=== PATIENT | male | born 1975 | race Caucasian/White ===

== ENCOUNTER 2017-05-08 16:14 | Emergency (ER) | payer BC, SELFPAY ==
[2017-05-08 16:14] VITALS: BP 171/95; PULSE 102; RESP 18; TEMP 36.6; O2SAT 96; BMI 63.0
--- NOTE | 2017-05-08 16:19 | CT_ITS ---
CT abdomen pelvis w con CLINICAL INDICATION: ITS.REASON: left sided abdominal pain ORDERING PHYSICIAN: Saige House MD PATIENT AGE: 42 years COMPARISON: None TECHNIQUE: Axial images obtained with sagittal and coronal reformats. PROCEDURE: Oral Contrast: None IV Contrast: 75 mL of [id number]. FINDINGS: Lung bases are clear. The liver, gallbladder, spleen, adrenal glands, pancreas, and kidneys have an unremarkable appearance Unremarkable appendix. No intestinal obstruction or free air. There are scattered diverticula within the descending colon. No evidence of diverticulitis. There is mild thickening of the descending colon and sigmoid colon which may be due to colitis. There is an unusual appearance of the sigmoid colon in the right pelvic region with a somewhat focally prominent gas density with mild thickening of the wall. The may only be related to tortuosity of the sigmoid colon. An abscess is felt to be less likely. No inflammatory changes around this region. There is some focal thickening of the mid aspect of the sigmoid colon with mild dilatation. One cannot exclude the possibility of a neoplasm. Colonoscopy or barium enema suggested for further value There is mild thickening in the urinary bladder nonspecific and could be seen with cystitis. No acute bony anomalies. IMPRESSION: 1. Mild thickening of the descending and sigmoid colon which could be due to nondistention or colitis. 2. There is some focal thickening of the mid aspect of the sigmoid colon with mild dilatation. One cannot exclude the possibility of a neoplasm. Colonoscopy or barium enema suggested for further value. 3. Mild thickening of the urinary bladder which may be seen with cystitis
--- NOTE | 2017-05-08 16:20 | HMH.EDGENADL ---
ED Disposition Clinical Impression: Colitis, Elevated lipase Disposition: Home, Self-Care Condition on Discharge: Good Additional Instructions: 1- drink pleny of gotrade. 2- vegetable diet. 3- bentyl prn. 4- discuc ct report withDr <osses your pcp. 5- request colonscopy of still concened about colon cancer. 6- return if needed. - Critical Care Critical Care Time: No Attestation: On , the high probability of a clinically significant, sudden or life threatening deterioration of the following system(s) required my full and direct attention, intervention and personal management. The time I documented below is in addition to time spent performing reported procedures but includes the following listed in this critical care notation. Medical Decision Making - Erik Inquiry Pt receiving controlled substance: No Erik was queried for this patient: No Vital Signs: 05/08/17 16:14 Temperature 97.8 F Temperature Source Oral Pulse Rate [Right Brachial] 102 H Respiratory Rate 18 Blood Pressure [Right Arm] 171/95 Blood Pressure Mean [Right Arm] 120 Blood Pressure Source [Right Arm] Automatic Cuff Blood Pressure Position [Right Arm] Sitting 02 Sat by Pulse Oximetry 96 Oxygen Delivery Method Room Air - Lab Data Lab Results 05/08/17 16:20: WBC 8.8, RBC 5.55, Hgb 16.6, Hct 49.0, MCV 88.2, MCH 29.9, MCHC 33.9, RDW 12.4, Plt Count 255, MPV 8.4, Neut % (Auto) 74.8, Lymph % (Auto) 19.4, [place] % (Auto) 4.8, Eos % (Auto) 0.6, Baso % (Auto) 0.3, Neut # (Auto) 6.6, Lymph # (Auto) 1.7, [place] # (Auto) 0.4, Eos # (Auto) 0.1, Baso # (Auto) 0.0 05/08/17 16:20: Sodium 138, Potassium 3.8, Chloride 100, Carbon Dioxide 27, Anion Gap 14.8, BUN 8, Creatinine 0.91, Estimated Creat Clear 132, Estimated GFR 92, Est GFR ( Amer) 112, Glucose 127 H, Calcium 9.3, Magnesium 2.1, Total Bilirubin 0.8, AST 24, ALT 68, Alkaline Phosphatase 108, Troponin I < 0.02, Total Protein 8.6 H, Albumin 4.5, Globulin 4.1 H, Albumin/Globulin Ratio 1.1, Lipase 422 H Result diagrams: 05/08/17 16:20 05/08/17 16:20 Orders (Tests/Meds): ED MEDICATIONS Discontinued Medications Generic Name Dose Route Start Last Admin Trade Name Bandar PRN Reason Stop Dose Admin Iopamidol 75 ml 05/08/17 17:19 05/08/17 17:20 [id number]; 75ml Vial IV 05/08/17 17:20 75 ml ONCE ONE Administration Sodium Chloride 10 ml 05/08/17 17:19 05/08/17 17:20 Rad-Saline Flush 10ml Syringe IV 05/08/17 17:20 10 ml ONCE ONE Administration ORDERS Category Date Time Status Diarrhea Panel, PCR Stat Lab 05/08/17 16:18 Ordered EKG Request [ECG Request by /Darlene] Stat Y 05/08/17 16:18 Ordered - ECG Data Tracing #1 Normal sinus rhythm minute left atrial enlargement baseline artifact no acute finding on EKG ECG initial impression date: 05/08/17 ECG initial impression time: 16:24 General Adult HPI - General Chief complaint: PAIN Stated complaint: left shouldre and rib pain Time Seen by Provider: 05/08/17 16:20 - History of Present Illness HPI narrative: This is a 42 years old white male who presented to the ED with multiple complain. A week ago, he hurt his left shoulder below the left shoulder blade, he developed sharp pain that is radiating to the left lower ribs to the anterior inframammary area and into the left side of the abdomen. He has been experiencing decreased appetite associated with sharp crampy pain on the left side and produced light-colored stool. He states he has a family history of colon cancer, the youngest being 55 years old. Patient denies having fever or chills anterior chest pain palpitations shortness of breath or vomiting Onset (ago): day(s) (7 days) Location: back, abdomen Radiation: non-radiation Severity: mild Quality: sharp Consistency: intermittent Relieving factors: eating Exacerbating factors: none Associated symptoms: other (diarrhea . ) Treatments prior to arrival: none - Related
--- NOTE | 2017-05-08 16:23 | ED_ITS ---
ED Disposition Clinical Impression: Colitis, Elevated lipase Disposition: Home, Self-Care Condition on Discharge: Good Additional Instructions: 1- drink pleny of gotrade. 2- vegetable diet. 3- bentyl prn. 4- discuc ct report withDr <osses your pcp. 5- request colonscopy of still concened about colon cancer. 6- return if needed. - Critical Care Critical Care Time: No Attestation: On , the high probability of a clinically significant, sudden or life threatening deterioration of the following system(s) required my full and direct attention, intervention and personal management. The time I documented below is in addition to time spent performing reported procedures but includes the following listed in this critical care notation. Medical Decision Making - Erik Inquiry Pt receiving controlled substance: No Erik was queried for this patient: No Vital Signs: 05/08/17 16:14 Temperature 97.8 F Temperature Source Oral Pulse Rate [Right Brachial] 102 H Respiratory Rate 18 Blood Pressure [Right Arm] 171/95 Blood Pressure Mean [Right Arm] 120 Blood Pressure Source [Right Arm] Automatic Cuff Blood Pressure Position [Right Arm] Sitting 02 Sat by Pulse Oximetry 96 Oxygen Delivery Method Room Air - Lab Data Lab Results 05/08/17 16:20: WBC 8.8, RBC 5.55, Hgb 16.6, Hct 49.0, MCV 88.2, MCH 29.9, MCHC 33.9, RDW 12.4, Plt Count 255, MPV 8.4, Neut % (Auto) 74.8, Lymph % (Auto) 19.4 , [place] % (Auto) 4.8, Eos % (Auto) 0.6, Baso % (Auto) 0.3, Neut # (Auto) 6.6, Lymph # (Auto) 1.7, [place] # (Auto) 0.4, Eos # (Auto) 0.1, Baso # (Auto) 0.0 05/08/17 16:20: Sodium 138, Potassium 3.8, Chloride 100, Carbon Dioxide 27, Anion Gap 14.8, BUN 8, Creatinine 0.91, Estimated Creat Clear 132, Estimated GFR 92, Est GFR ( Amer) 112, Glucose 127 H, Calcium 9.3, Magnesium 2.1, Total Bilirubin 0.8, AST 24, ALT 68, Alkaline Phosphatase 108, Troponin I < 0.02 , Total Protein 8.6 H, Albumin 4.5, Globulin 4.1 H, Albumin/Globulin Ratio 1.1, Lipase 422 H Result diagrams: 05/08/17 16:20 05/08/17 16:20 Orders (Tests/Meds): ED MEDICATIONS Discontinued Medications Generic Name Dose Route Start Last Admin Trade Name Bandar PRN Reason Stop Dose Admin Iopamidol 75 ml 05/08/17 17:19 05/08/17 17:20 [id number]; 75ml Vial IV 05/08/17 17:20 75 ml ONCE ONE Administration Sodium Chloride 10 ml 05/08/17 17:19 05/08/17 17:20 Rad-Saline Flush 10ml Syringe IV 05/08/17 17:20 10 ml ONCE ONE Administration ORDERS Category Date Time Status Diarrhea Panel, PCR Stat Lab 05/08/17 16:18 Ordered EKG Request [ECG Request by /Darlene] Stat Y 05/08/17 16:18 Ordered - ECG Data Tracing #1 Normal sinus rhythm minute left atrial enlargement baseline artifact no acute finding on EKG ECG initial impression date: 05/08/17 ECG initial impression time: 16:24 General Adult HPI - General Chief complaint: PAIN Stated complaint: left shouldre and rib pain Time Seen by Provider: 05/08/17 16:20 - History of Present Illness HPI narrative: This is a 42 years old white male who presented to the ED with multiple complain. A week ago, he hurt his left shoulder below the left shoulder blade, he developed sharp pain that is radiating to the left lower ribs to the
[2017-05-08 16:31] LABS: Basophils % 0.3 % (0.1-2.0); Eosinophils # 0.1 K/mm3 (0.0-0.4); Eosinophils % 0.6 % (0.1-12.0); Hemoglobin 16.6 g/dL (14.1-18.0); Lymphocytes # 1.7 K/mm3 (0.7-4.5); Lymphocytes % 19.4 K/mm3 (10-50); Mean Corpuscular HGB Conc 33.9 g/dL (31.8-35.4); Mean Corpuscular Hemoglobin 29.9 pg (27.0-31.2); Mean Corpuscular Volume 88.2 fl (80-94); Mean Platelet Volume 8.4 fl (7.4-10.4); Monocytes # 0.4 K/mm3 (0.1-1.0); Monocytes % 4.8 % (1.7-9.3); Neutrophils # 6.6 K/mm3 (1.8-7.8); Neutrophils % 74.8 % (37.0-80.0); Platelet Count 255 K/mm3 (142-424); Red Blood Count 5.55 M/mm3 (4.60-6.20); Red Cell Distribution Width 12.4 % (11.5-17.5); White Blood Count 8.8 K/mm3 (4.8-10.8)
[2017-05-08 16:49] LABS: Alanine Aminotransferase 68 U/L (12-78); Albumin Level 4.5 gm/dL (3.4-5.0); Albumin/Globulin Ratio 1.1 (1.1-1.8); Alkaline Phosphatase 108 U/L (46-116); Anion Gap 14.8 mEq/L (5-15); Aspartate Amino Transferase 24 U/L (15-37); Bilirubin,Total 0.8 mg/dL (0.2-1.0); Blood Urea Nitrogen 8 mg/dL (7-18); Calcium 9.3 mg/dL (8.5-10.1); Carbon Dioxide 27 mmol/L (21.0-32.0); Chloride 100 mmol/L (98-107); Creatinine Clearance Estimated 132 mL/min (0-300); Creatinine,Serum 0.91 mg/dL (0.70-1.30); Estimated Glomerular Filt Rate 92 ml/min (>60); GFR (African American) 112 ML/MIN (>60); Globulin 4.1 gm/dl (1.3-3.2); Glucose 127 mg/dL (74-106); Lipase 422 u/L (73-393); Magnesium 2.1 mg/dL (1.4-2.2); Potassium 3.8 mmoL/L (3.5-5.1); Sodium 138 mmol/L (136-145); Total Protein,Serum 8.6 gm/dL (6.4-8.2); Troponin I < 0.02 ng/ml (0.00-0.06)
[2017-05-08 18:13] VITALS: BP 121/5; PULSE 85; RESP 18; TEMP 36.7; O2SAT 98
== END 2017-05-08 18:13 | disposition home or self-care (01) ==
PROVIDERS: Emergency Provider Emergency Medicine; Family Provider Family Medicine; PCP Family Medicine
DX: K52.9 Noninfective gastroenteritis and colitis, unspecified (principal); R74.8 Abnormal levels of other serum enzymes; K57.90 Diverticulosis of intestine, part unspecified, without perforation or abscess without bleeding
CPT/HCPCS: 74177; 80053; 83690; 83735; 84484; 85025; 93005; 99282; Q9967

== ENCOUNTER → 2017-05-09 15:18 | Outpatient (CLI) | payer BC, SELFPAY ==
[2017-05-09 18:48] LABS: Basophils % 0.4 % (0.1-2.0); Eosinophils # 0.1 K/mm3 (0.0-0.4); Eosinophils % 0.5 % (0.1-12.0); Hematocrit 49.9 % (42.0-52.0); Hemoglobin 16.4 g/dL (14.1-18.0); Lymphocytes # 1.8 K/mm3 (0.7-4.5); Lymphocytes % 18.8 K/mm3 (10-50); Mean Corpuscular HGB Conc 32.9 g/dL (31.8-35.4); Mean Corpuscular Hemoglobin 29.3 pg (27.0-31.2); Mean Corpuscular Volume 89.2 fl (80-94); Mean Platelet Volume 9.8 fl (7.4-10.4); Monocytes # 0.5 K/mm3 (0.1-1.0); Monocytes % 5.2 % (1.7-9.3); Neutrophils # 7.1 K/mm3 (1.8-7.8); Neutrophils % 75.2 % (37.0-80.0); Platelet Count 264 K/mm3 (142-424); Red Cell Distribution Width 12.5 % (11.5-17.5); White Blood Count 9.5 K/mm3 (4.8-10.8)
[2017-05-09 18:53] LABS: Alanine Aminotransferase 66 U/L (12-78); Albumin Level 4.8 gm/dL (3.4-5.0); Albumin/Globulin Ratio 1.3 (1.1-1.8); Alkaline Phosphatase 112 U/L (46-116); Amylase 43 U/L (25-125); Anion Gap 15.1 mEq/L (5-15); Aspartate Amino Transferase 27 U/L (15-37); Bilirubin,Total 0.6 mg/dL (0.2-1.0); Blood Urea Nitrogen 9 mg/dL (7-18); Calcium 9.7 mg/dL (8.5-10.1); Carbon Dioxide 26 mmol/L (21.0-32.0); Chloride 101 mmol/L (98-107); Creatinine,Serum 0.86 mg/dL (0.70-1.30); Estimated Glomerular Filt Rate 98 ml/min (>60); GFR (African American) 119 ML/MIN (>60); Globulin 3.8 gm/dl (1.3-3.2); Glucose 109 mg/dL (74-106); Lipase 313 u/L (73-393); Potassium 4.1 mmoL/L (3.5-5.1); Sodium 138 mmol/L (136-145); Total Protein,Serum 8.6 gm/dL (6.4-8.2)
[2017-05-09 19:55] LABS: Erythrocyte Sedimentation Rate 11 mm/hr (0-15)
== END ==
PROVIDERS: Visit Provider Nurse Practitioner Family
DX: K52.9 Noninfective gastroenteritis and colitis, unspecified (principal); R74.8 Abnormal levels of other serum enzymes
CPT/HCPCS: 80053; 82150; 83690; 85025; 85651

== ENCOUNTER 2017-05-11 10:04 | Observation (INO) | payer BC, SELFPAY ==
[2017-05-11] VITALS (7 sets, daily range): BP systolic 149–176; BP diastolic 88–107; PULSE 73–95; RESP 16–18; TEMP 36.3–36.8; O2SAT 95–98; BMI 28.5; BMI 28.0
--- NOTE | 2017-05-11 10:25 | HMH.EDABDPAI ---
ED Disposition Clinical Impression: Colitis, Diverticulosis Disposition: Still a Patient Condition on Discharge: Fair - Critical Care Critical Care Time: No Attestation: On 05/11/17, the high probability of a clinically significant, sudden or life threatening deterioration of the following system(s) required my full and direct attention, intervention and personal management. The time I documented below is in addition to time spent performing reported procedures but includes the following listed in this critical care notation. Medical Decision Making - Medical Records Medical records reviewed: Yes: I reviewed the patient's medical records. - Erik Inquiry Pt receiving controlled substance: No Erik was queried for this patient: No Vital Signs: 05/11/17 10:14 Temperature Source Oral Pulse Rate [Right Radial] 95 H Respiratory Rate 18 Blood Pressure [Right Arm] 176/107 Blood Pressure Mean [Right Arm] 130 Blood Pressure Source [Right Arm] Automatic Cuff Blood Pressure Position [Right Arm] Supine 02 Sat by Pulse Oximetry 95 Oxygen Delivery Method Room Air - Lab Data Lab Results 05/11/17 10:33: Urine Color Yellow, Urine Appearance Clear, Urine pH 6.0, Ur Specific [place] <= 1.005, Urine Protein Negative, Urine Glucose (UA) Negative, Urine Ketones Negative, Urine Blood Negative, Urine Nitrate Negative, Urine Bilirubin Negative, Urine Urobilinogen 0.2, Ur Leukocyte Esterase Negative, Ur Squamous Epith Cells Occasional 05/11/17 10:50: WBC 10.8, RBC 5.20, Hgb 15.5, Hct 45.8, MCV 88.0, MCH 29.8, MCHC 33.8, RDW 12.5, Plt Count 242, MPV 8.8, Neut % (Auto) 82.7 H, Lymph % (Auto) 11.3, [place] % (Auto) 5.5, Eos % (Auto) 0.2, Baso % (Auto) 0.2, Neut # (Auto) 9.0 H, Lymph # (Auto) 1.2, [place] # (Auto) 0.6, Eos # (Auto) 0.0, Baso # (Auto) 0.0 05/11/17 10:50: Sodium 138, Potassium 3.6, Chloride 101, Carbon Dioxide 27, Anion Gap 13.6, BUN 10, Creatinine 0.93, Estimated Creat Clear 159, Estimated GFR 90, Est GFR ( Amer) 109, Glucose 145 H, Calcium 9.2, Magnesium 2.0, Total Bilirubin 0.5, AST 16 D, ALT 50, Alkaline Phosphatase 102, Total Protein 8.2, Albumin 4.4, Globulin 3.8 H, Albumin/Globulin Ratio 1.2, Amylase 36, Lipase 215 Result diagrams: 05/11/17 10:50 05/11/17 10:50 Orders (Tests/Meds): ED MEDICATIONS Generic Name Dose Route Start Last Admin Trade Name Freq PRN Reason Stop Dose Admin Promethazine HCl 12.5 mg 05/11/17 10:33 05/11/17 10:51 Phenergan 25mg/Ml 1ml Vial IV 06/10/17 10:32 12.5 mg Q6HP PRN Administration Nausea And Vomiting Discontinued Medications Generic Name Dose Route Start Last Admin Trade Name Freq PRN Reason Stop Dose Admin Sodium Chloride 1,000 mls @ 999 mls/hr 05/11/17 10:45 05/11/17 10:51 Sod Chlor 0.9% 1000ml Bag IV 05/11/17 11:45 999 mls/hr .Q1H1M NIDHI Administration Meperidine HCl 12.5 mg 05/11/17 10:33 Meperidine 25mg/Ml 1ml Syringe IV 06/10/17 10:32 Q6HP PRN Moderate to Severe Pain Meperidine HCl 12.5 mg 05/11/17 10:57 05/11/17 10:58 Meperidine 75mg/Ml 1ml Syringe IV 05/11/17 10:58 12.5 mg ONCE ONE Administration ORDERS Category Date Time Status XR acute abdomen series Stat Exams 05/11/17 10:33 Taken Diarrhea Panel, PCR Stat Lab 05/11/17 10:33 Ordered Stool Culture Stat Micro 05/11/17 10:33 Ordered Medical Decision Narrative: I discussed the patient labs and x-rays and did review of prior CT scan. Discussed with his PCP again the Idania who agreed to admit the patient. I spoke with the his primary care physician again the Idania who wanted him admitted and consult Dr. Uribe on him in the morning for possible colonoscopy. Abdominal Pain HPI - General Stated Complaint: ABD Pain Time Seen by Provider: 05/11/17 10:05 - History of Present Illness HPI narrative: 42 years old white male with no significant past medical. 10 days ago he developed left-sided abdominal pain and diarrhea. On
--- NOTE | 2017-05-11 10:28 | ED_ITS ---
ED Disposition Clinical Impression: Colitis, Diverticulosis Disposition: Still a Patient Condition on Discharge: Fair - Critical Care Critical Care Time: No Attestation: On 05/11/17, the high probability of a clinically significant, sudden or life threatening deterioration of the following system(s) required my full and direct attention, intervention and personal management. The time I documented below is in addition to time spent performing reported procedures but includes the following listed in this critical care notation. Medical Decision Making - Medical Records Medical records reviewed: Yes: I reviewed the patient's medical records. - Erik Inquiry Pt receiving controlled substance: No Erik was queried for this patient: No Vital Signs: 05/11/17 10:14 Temperature Source Oral Pulse Rate [Right Radial] 95 H Respiratory Rate 18 Blood Pressure [Right Arm] 176/107 Blood Pressure Mean [Right Arm] 130 Blood Pressure Source [Right Arm] Automatic Cuff Blood Pressure Position [Right Arm] Supine 02 Sat by Pulse Oximetry 95 Oxygen Delivery Method Room Air - Lab Data Lab Results 05/11/17 10:33: Urine Color Yellow, Urine Appearance Clear, Urine pH 6.0, Ur Specific [place] <= 1.005, Urine Protein Negative, Urine Glucose (UA) Negative, Urine Ketones Negative, Urine Blood Negative, Urine Nitrate Negative, Urine Bilirubin Negative, Urine Urobilinogen 0.2, Ur Leukocyte Esterase Negative, Ur Squamous Epith Cells Occasional 05/11/17 10:50: WBC 10.8, RBC 5.20, Hgb 15.5, Hct 45.8, MCV 88.0, MCH 29.8, MCHC 33.8, RDW 12.5, Plt Count 242, MPV 8.8, Neut % (Auto) 82.7 H, Lymph % (Auto ) 11.3, [place] % (Auto) 5.5, Eos % (Auto) 0.2, Baso % (Auto) 0.2, Neut # (Auto) 9.0 H, Lymph # (Auto) 1.2, [place] # (Auto) 0.6, Eos # (Auto) 0.0, Baso # (Auto) 0.0 05/11/17 10:50: Sodium 138, Potassium 3.6, Chloride 101, Carbon Dioxide 27, Anion Gap 13.6, BUN 10, Creatinine 0.93, Estimated Creat Clear 159, Estimated GFR 90, Est GFR ( Amer) 109, Glucose 145 H, Calcium 9.2, Magnesium 2.0, Total Bilirubin 0.5, AST 16 D, ALT 50, Alkaline Phosphatase 102, Total Protein 8.2, Albumin 4.4, Globulin 3.8 H, Albumin/Globulin Ratio 1.2, Amylase 36, Lipase 215 Result diagrams: 05/11/17 10:50 05/11/17 10:50 Orders (Tests/Meds): ED MEDICATIONS Generic Name Dose Route Start Last Admin Trade Name Freq PRN Reason Stop Dose Admin Promethazine HCl 12.5 mg 05/11/17 10:33 05/11/17 10:51 Phenergan 25mg/Ml 1ml Vial IV 06/10/17 10:32 12.5 mg Q6HP PRN Administration Nausea And Vomiting Discontinued Medications Generic Name Dose Route Start Last Admin Trade Name Freq PRN Reason Stop Dose Admin Sodium Chloride 1,000 mls @ 999 mls/hr 05/11/17 10:45 05/11/17 10:51 Sod Chlor 0.9% 1000ml Bag IV 05/11/17 11:45 999 mls/hr .Q1H1M NIDHI Administration Meperidine HCl 12.5 mg 05/11/17 10:33 Meperidine 25mg/Ml 1ml Syringe IV 06/10/17 10:32 Q6HP PRN Moderate to Severe Pain Meperidine HCl 12.5 mg 05/11/17 10:57 05/11/17 10:58 Meperidine 75mg/Ml 1ml Syringe IV 05/11/17 10:58 12.5 mg ONCE ONE Administration ORDERS Category Date Time Status XR acute abdomen series Stat Exams 05/11/17 10:33 Taken Diarrhea Panel, PCR Stat Lab 05/11/17 10:33 Ordered Stool Cultu
--- NOTE | 2017-05-11 10:33 | XR_ITS ---
XR acute abdomen series COMPARISON: CT scan abdomen pelvis 05/08/2017 HISTORY: Diarrhea TECHNIQUE: PA chest KUB and upright abdomen FINDINGS: The chest reveals clear lung daniel bilaterally. Cardiac silhouette is normal and there is no pleural fluid. Abdominal films show an almost totally gasless appearing abdomen consistent with a history of diarrhea. There are no abnormal soft tissue shadows and there is no free air. IMPRESSION: Negative chest, essentially totally gasless abdomen. As noted
[2017-05-11 11:13] LABS: Microscopic, Urine URINE MICROSCOPIC (MICROSCOPIC)
[2017-05-11 11:15] LABS: Appearance,Urine CLEAR (Clear); Bilirubin,Urine Negative (Negative); Blood, Urine Negative (Negative); Color,Urine YELLOW (Yellow); Glucose,Urine (UA) Negative (Negative); Ketones,Urine Negative (Negative); Leukocyte Esterase,Urine Negative (Negative); Nitrate,Urine Negative (Negative); Protein,Urine Negative (Negative); Specific Gravity, Urine <= 1.005 (1.005-1.030); Urobilinogen,Urine 0.2 EU/dl (0.2)
[2017-05-11 11:16] LABS: Basophils % 0.2 % (0.1-2.0); Eosinophils % 0.2 % (0.1-12.0); Hematocrit 45.8 % (42.0-52.0); Hemoglobin 15.5 g/dL (14.1-18.0); Lymphocytes # 1.2 K/mm3 (0.7-4.5); Lymphocytes % 11.3 K/mm3 (10-50); Mean Corpuscular HGB Conc 33.8 g/dL (31.8-35.4); Mean Corpuscular Hemoglobin 29.8 pg (27.0-31.2); Mean Platelet Volume 8.8 fl (7.4-10.4); Monocytes # 0.6 K/mm3 (0.1-1.0); Monocytes % 5.5 % (1.7-9.3); Neutrophils % 82.7 % (37.0-80.0); Platelet Count 242 K/mm3 (142-424); Red Cell Distribution Width 12.5 % (11.5-17.5); White Blood Count 10.8 K/mm3 (4.8-10.8)
[2017-05-11 11:22] LABS: Squamous Epithelial Cell,Urine Occasional #/hpf (0-5)
[2017-05-11 11:26] LABS: Alanine Aminotransferase 50 U/L (12-78); Albumin Level 4.4 gm/dL (3.4-5.0); Albumin/Globulin Ratio 1.2 (1.1-1.8); Alkaline Phosphatase 102 U/L (46-116); Amylase 36 U/L (25-125); Anion Gap 13.6 mEq/L (5-15); Aspartate Amino Transferase 16 U/L (15-37); Bilirubin,Total 0.5 mg/dL (0.2-1.0); Blood Urea Nitrogen 10 mg/dL (7-18); Calcium 9.2 mg/dL (8.5-10.1); Carbon Dioxide 27 mmol/L (21.0-32.0); Chloride 101 mmol/L (98-107); Creatinine Clearance Estimated 159 mL/min (0-300); Creatinine,Serum 0.93 mg/dL (0.70-1.30); Estimated Glomerular Filt Rate 90 ml/min (>60); GFR (African American) 109 ML/MIN (>60); Globulin 3.8 gm/dl (1.3-3.2); Glucose 145 mg/dL (74-106); Lipase 215 u/L (73-393); Potassium 3.6 mmoL/L (3.5-5.1); Sodium 138 mmol/L (136-145); Total Protein,Serum 8.2 gm/dL (6.4-8.2)
--- NOTE | 2017-05-11 12:21 | PC.NURSE ---
1217 - Pt ambulted to room 208 escorted by ER nurse Christel Morelos RN.
--- NOTE | 2017-05-11 13:14 | CT_ITS ---
CT abdomen pelvis w con COMPARISON: CT scan abdomen pelvis 05/08/2017 HISTORY: Left-sided abdominal pain for 2 weeks suspect possible diverticulitis TECHNIQUE: Multiple axial scans obtained from hemidiaphragms to the pelvic floor and were performed with IV and oral contrast. Sagittal and coronal reformats were evaluated as well. FINDINGS: The lower lung daniel are clear. The liver spleen stomach pancreas and gallbladder appear grossly normal. The adrenal glands are normal. The kidneys are normal size and show symmetrical function both appearing normal. Small bowel appears normal, the appendix is normal. There are scattered stool mixed with oral contrast and ascending and transverse colon. There are mild productive reticular changes of the sigmoid colon with accentuation of the haustral folds however there is no evidence of diverticulitis. The urinary bladder is partially decompressed and shows a diffusely thickened wall likely due to lack of distention but could be secondary to cystitis as well. The prostate is normal. IMPRESSION: Prediverticular changes of the sigmoid colon, no findings to suggest colitis as was suspected on the previous study, other nonacute findings as described
[2017-05-11 17:34] LABS: Adenovirus F 40/41, stool Not Detected (NotDetected); Astrovirus Not Detected (NotDetected); Campylobacter Not Detected (NotDetected); Clostridium Difficile A/B, PCR Not Detected (NotDetected); Cryptosporidium Not Detected (NotDetected); Cyclospora Cayetanesis Not Detected (NotDetected); Entamoeba histolytica Not Detected (NotDetected); Enteroaggregative E coli Not Detected (NotDetected); Enteropathogenic E coli Not Detected (NotDetected); Enterotoxigenic E coli Not Detected (NotDetected); Giardia lamblia Not Detected (NotDetected); Norovirus Not Detected (NotDetected); Plesimonas Shigalloides, PCR Not Detected (NotDetected); Rotavirus A Not Detected (NotDetected); Salmonella, PCR Not Detected (NotDetected); Sapovirus Not Detected (NotDetected); Shiga-like toxin E coli Not Detected (NotDetected); Shigella Enterovasive E coli Not Detected (NotDetected); Vibrio Cholerae Not Detected (NotDetected); Vibrio, PCR Not Detected (NotDetected); Yersinia Entercolitica, PCR Not Detected (NotDetected)
--- NOTE | 2017-05-11 19:03 | PC.NURSE ---
Report given to Duyen Cardenas RN
--- NOTE | 2017-05-11 19:10 | PC.NURSE ---
PT FULL CODE. REPORT FROM [facility]
--- NOTE | 2017-05-11 19:43 | HMH.HP ---
*Admission Date: 05/11/17 *Chief complaint: abd pain *History of present illness: 42 years old male with no significant past medical, father father of colon cancer at the age of 52. Patient presents to the ED with complaints of 10 days ago he developed left-sided abdominal pain and diarrhea. On May 08, 2017 he was seen in the ED he underwent labs and CT scan that was positive for colitis. He was given Bentyl and dietary instructions. On Friday he was seen by his primary care physician where he was given prednisone, Cipro and Flagyl. His diarrhea has improved and the stool became more formed, but has noticed blood streaks with bowel movement. Patient states today while he is at work he developed another left lower quadrant crampy pain with nausea no vomiting no diarrhea. He denies having fever or chills. She admitted for abdominal pain and a consult for Dr. Uribe in the [facility] History I have reviewed the patient's past medical history: Yes Medical History: Denies:: Cancer, Diabetes Mellitus Type 1, Diabetes Mellitus Type 2, MRSA Other Surgeries: Yes: No Previous Surgery, Other (wisdom teeth extraction x4) Amputation: No Fractures: Yes ((L) clavicle) - *Social History Educational Level: Attended College Smoking Status: Former smoker Smoking End Date: 2002 Alcohol Intake: former Alcohol Intake Frequency:: 0-2 drinks per day Substance Use Type: denies use Occupational Status: employed Housing: house Household Members: none - Psychiatric History Expresses thoughts of harming self/others: None Suicide Plan Description: No Plan *Family Hx:: Cancer, Coronary Artery Disease, Heart Attack, Hyperlipidemia, Hypertension Review of Systems - Review of Systems Review of systems:: pertinent systems reviewed and negative unless documented below - Constitutional Reports anorexia - Eyes Denies change in vision - ENT Denies change in voice - *Cardiovascular Denies chest pain with activity - *Respiratory Denies chest congestion - *Gastrointestinal Reports abdominal pain, Reports bloating, Reports change in stools, Reports cramping, Reports bright, red blood in stools, Denies black, tarry stools, Denies vomiting - *Genitourinary Denies urinary frequency - *Musculoskeletal Denies decreased muscle mass - Integumentary/Breasts Denies rash - *Neurologic Denies abnormal movements - Psychiatric Denies lack of enjoyment - Endocrine Denies flushing - Hematologic/Lymphatic Denies enlarged lymph nodes Meds Home Medications Medication Instructions Recorded Confirmed Type dicyclomine 10 mg capsule 10 mg PO Q8H 05/09/17 05/11/17 History Ciprofloxacin HCl [Ciprofloxacin 500 mg PO Q12H 05/11/17 05/11/17 History 500mg Tab] Tizanidine HCl [Zanaflex] 4 mg PO TID PRN 05/11/17 05/11/17 History metroNIDAZOLE [Flagyl] 500 mg PO TID 05/11/17 05/11/17 History predniSONE [Deltasone 20mg 20 mg PO BID 05/11/17 05/11/17 History tablet] Allergies Allergy/AdvReac Type Severity Reaction Status Date / Time cat dander Allergy Severe Difficulty Verified 05/11/17 18:54 Breathing Exam Vital signs and Labs for Last 24 Hours: Temp Pulse Resp BP Pulse Ox 98.0 F 92 H 18 150/91 97 05/11/17 19:37 05/11/17 19:37 05/11/17 19:37 05/11/17 19:37 05/11/17 19:37 Laboratory Results - last 24 hr 05/11/17 16:40: Stl Aeromonas (PCR) Not detected, Stl C. cayetanensis PCR Not detected, Stool Rotavirus (PCR) Not detected, Stl Adenov F 40/41 PCR Not detected, Stool Astrovirus (PCR) Not detected, Stool Campylobacter PCR Not detected, Stl C.difficile Tox PCR Not detected, Stool Cryptosporidium PCR Not detected, Stl E.coli Shiga Tox PCR Not detected, Stool E coli O157 PCR Not detected, Stl Enterotoxigenic E PCR Not detected, Stool EPEC (PCR) Not detected, Stool EAEC (PCR) Not detected, Stl E. histolytica PCR Not detected, Stool Giardia Lamblia PCR Not detected, Stool Salmonella PCR Not dete
[2017-05-12 03:40] VITALS: BP 117/61; PULSE 69; RESP 18; TEMP 36.7; O2SAT 95
--- NOTE | 2017-05-12 04:33 | PC.NURSE ---
PT ALERT AND ORIENTED. SLEPT LONG INTERVALS THIS SHIFT. IV SECURE AND PATENT INFUSING D5WNS@125/HR W/O REDNESS OR EDEMA. CONTINUES ON ABX WELL. RESPIRATIONS EVEN AND UNLABORED WITH BREATH SOUNDS CLEAR, BUT DIMINISHED IN BASES. VSS. NO C/O PAIN OR DISCOMFORT REPORTED OF THIS TIME. PT NPO, HAS CONSULT ORDERED WITH DR. BARROW THIS A.M. HAD LABS ORDERED FOR THIS A.M. PT STABLE. WILL CONTINUE TO MONITOR. REPORT TO BE GIVEN TO ONCOMING NURSE.
[2017-05-12 06:41] LABS: Basophils % 0.4 % (0.1-2.0); Eosinophils # 0.1 K/mm3 (0.0-0.4); Eosinophils % 0.6 % (0.1-12.0); Hematocrit 46.7 % (42.0-52.0); Hemoglobin 15.4 g/dL (14.1-18.0); Lymphocytes # 2.4 K/mm3 (0.7-4.5); Lymphocytes % 32.4 K/mm3 (10-50); Mean Corpuscular Hemoglobin 29.6 pg (27.0-31.2); Mean Corpuscular Volume 89.6 fl (80-94); Mean Platelet Volume 8.5 fl (7.4-10.4); Monocytes # 0.5 K/mm3 (0.1-1.0); Monocytes % 6.2 % (1.7-9.3); Neutrophils # 4.5 K/mm3 (1.8-7.8); Neutrophils % 60.4 % (37.0-80.0); Platelet Count 206 K/mm3 (142-424); Red Blood Count 5.21 M/mm3 (4.60-6.20); Red Cell Distribution Width 12.6 % (11.5-17.5); White Blood Count 7.4 K/mm3 (4.8-10.8)
--- NOTE | 2017-05-12 07:18 | PC.NURSE ---
REPORT GIVEN TO Joyce ARMSTRONG W/C
--- NOTE | 2017-05-12 07:26 | PC.NURSE ---
0710 - Report received from Duyen Cardenas RN
[2017-05-12 07:29] LABS: Blood Urea Nitrogen 8 mg/dL (7-18); Carbon Dioxide 29 mmol/L (21.0-32.0); Chloride 108 mmol/L (98-107); Creatinine Clearance Estimated 153 mL/min (0-300); Creatinine,Serum 0.95 mg/dL (0.70-1.30); Estimated Glomerular Filt Rate 88 ml/min (>60); GFR (African American) 106 ML/MIN (>60); Glucose 124 mg/dL (74-106); Sodium 144 mmol/L (136-145)
[2017-05-12 07:40] VITALS: BP 148/86; PULSE 79; RESP 16; TEMP 36.4; O2SAT 98
--- NOTE | 2017-05-12 07:57 | HMH.PHAVTE ---
[facility] Pharmacy VTE Monitoring - Patient Demographics Admission date: 05/11/17 Report Date: 05/12/17 Time: 07:57 Allergies/Adverse Reactions: Patient Allergies cat dander Allergy (Severe, Verified 05/11/17 18:54) Difficulty Breathing Height: 1.93 m Weight: 104.372 kg Patient Problems: Current Active Problems Colitis (Acute) Diverticulosis (Acute) - VTE Risk Labs: VTE Related Lab Results Hgb 15.4 g/dL (14.1-18.0) 05/12/17 06:08 Hct 46.7 % (42.0-52.0) 05/12/17 06:08 Plt Count 206 K/mm3 (142-424) 05/12/17 06:08 BUN 8 mg/dL (7-18) 05/12/17 06:08 Creatinine 0.95 mg/dL (0.70-1.30) 05/12/17 06:08 Estimated Creat Clear 153 mL/min (0-300) 05/12/17 06:08 Was VTE Risk Assessment Performed: Yes VTE Score: 2 VTE Risk Level: Very Low Risk - Prophylaxis VTE Prophylaxis Ordered?: Yes Types of VTE Prophylaxis: TEDS Knee High Location of Applied Device: Bilateral Lower Extremeties
[2017-05-12 08:00] VITALS: O2SAT 98
--- NOTE | 2017-05-12 14:34 | HMH.DCSUM ---
General - General Admission date: 05/11/17 Discharge date: 05/12/17 HPI HPI: 42 years old male with no significant past medical, father father of colon cancer at the age of 52. Patient presents to the ED with complaints of 10 days ago he developed left-sided abdominal pain and diarrhea. On May 08, 2017 he was seen in the ED he underwent labs and CT scan that was positive for colitis. He was given Bentyl and dietary instructions. On Friday he was seen by his primary care physician where he was given prednisone, Cipro and Flagyl. His diarrhea has improved and the stool became more formed, but has noticed blood streaks with bowel movement. Patient states today while he is at work he developed another left lower quadrant crampy pain with nausea no vomiting no diarrhea. He denies having fever or chills. he admitted for abdominal pain and a consult for Dr. Uribe in the a.m. Hospital Course Hospital Course: pt did better and abd pain has improved with nl bm today and was seen by gastro and will be followed as op Objective Vital signs: Temp Pulse Resp BP Pulse Ox 97.6 F 79 16 148/86 98 05/12/17 07:40 05/12/17 07:40 05/12/17 07:40 05/12/17 07:40 05/12/17 08:00 no acute distress - *Routine HEENT Exam Head: Present: normocephalic Eye: Present: EOMI, PERRL ENT: Present: mucous membranes dry - *Routine Neck Exam Present: supple - *Routine Respiratory Exam Present: CTA bilaterally. Absent: respiratory distress - *Routine Cardiovascular Exam Present: RRR. Absent: murmur - *Routine Abdominal Exam Present: soft, tenderness. Absent: distended, rebound - *Routine Extremities Exam Present: cyanosis - *Routine Skin Exam Present: intact, dry - *Routine Neurological Exam Present: alert, oriented X3, CN II-XII intact - Routine Psychiatric Exam Present: normal affect Results Labs on day of discharge: Labs from last 24 hours 05/12/17 05/12/17 05/11/17 06:08 06:08 16:40 WBC 7.4 D RBC 5.21 Hgb 15.4 Hct 46.7 MCV 89.6 MCH 29.6 MCHC 33.0 RDW 12.6 Plt Count 206 MPV 8.5 Neut % (Auto) 60.4 Lymph % (Auto) 32.4 Wise % (Auto) 6.2 Eos % (Auto) 0.6 Baso % (Auto) 0.4 Neut # (Auto) 4.5 Lymph # (Auto) 2.4 Wise # (Auto) 0.5 Eos # (Auto) 0.1 Baso # (Auto) 0.0 Sodium 144 Potassium 4.0 Chloride 108 H Carbon Dioxide 29 Anion Gap 11.0 BUN 8 Creatinine 0.95 Estimated Creat Clear 153 Estimated GFR 88 Est GFR ( Amer) 106 Glucose 124 H Stl Aeromonas (PCR) Not detected Stl C. cayetanensis PCR Not detected Stool Rotavirus (PCR) Not detected Stl Adenov F 40/41 PCR Not detected Stool Astrovirus (PCR) Not detected Stool Campylobacter PCR Not detected Stl C.difficile Tox PCR Not detected Stool Cryptosporidium PCR Not detected Stl E.coli Shiga Tox PCR Not detected Stool E coli O157 PCR Not detected Stl Enterotoxigenic E PCR Not detected Stool EPEC (PCR) Not detected Stool EAEC (PCR) Not detected Stl E. histolytica PCR Not detected Stool Giardia Lamblia PCR Not detected Stool Salmonella PCR Not detected Stool Sapovirus (PCR) Not detected Stl P. shigelloides PCR Not detected Stl Shigella/EIEC PCR Not detected St Y.enterocolitica PCR Not detected Stool Vibrio (PCR) Not detected Stl Vibrio cholerae PCR Not detected Stl Norovirus GI/GII PCR Not detected DS: Diagnosis - Discharge Diagnosis (1) Colitis Status: Acute Discharge Plan - Patient Discharge Instructions ACTIVITY: Continue current activity DIET: continue same diet - Follow up Plan Follow up with: Grayson Emerson APRN [Primary Care Provider] - Disposition: Home, Self-[facility] Medications: Home Medications Medication Instructions Recorded Confirmed Type dicyclomine 10 mg capsule 10 mg PO Q8H 05/09/17 05/11/17 History Ci
[2017-05-12 14:35] VITALS: BMI 28.0
--- NOTE | 2017-05-12 14:38 | P.DS_ITS ---
General - General Admission date: 05/11/17 Discharge date: 05/12/17 HPI HPI: 42 years old male with no significant past medical, father father of colon cancer at the age of 52. Patient presents to the ED with complaints of 10 days ago he developed left-sided abdominal pain and diarrhea. On April he was seen in the ED he underwent labs and CT scan that was positive for colitis. He was given Bentyl and dietary instructions. On Friday he was seen by his primary care physician where he was given prednisone, Cipro and Flagyl. His diarrhea has improved and the stool became more formed, but has noticed blood streaks with bowel movement. Patient states today while he is at work he developed another left lower quadrant crampy pain with nausea no vomiting no diarrhea. He denies having fever or chills. he admitted for abdominal pain and a consult for Dr. Uribe in the a.m. Hospital Course Hospital Course: pt did better and abd pain has improved with nl bm today and was seen by gastro and will be followed as op Objective Vital signs: Temp Pulse Resp BP Pulse Ox 97.6 F 79 16 148/86 98 05/12/17 07:40 05/12/17 07:40 05/12/17 07:40 05/12/17 07:40 05/12/17 08:00 no acute distress - *Routine HEENT Exam Head: Present: normocephalic Eye: Present: EOMI, PERRL ENT: Present: mucous membranes dry - *Routine Neck Exam Present: supple - *Routine Respiratory Exam Present: CTA bilaterally. Absent: respiratory distress - *Routine Cardiovascular Exam Present: RRR. Absent: murmur - *Routine Abdominal Exam Present: soft, tenderness. Absent: distended, rebound - *Routine Extremities Exam Present: cyanosis - *Routine Skin Exam Present: intact, dry - *Routine Neurological Exam Present: alert, oriented X3, CN II-XII intact - Routine Psychiatric Exam Present: normal affect Results Labs on day of discharge: Labs from last 24 hours 05/12/17 05/12/17 05/11/17 06:08 06:08 16:40 WBC 7.4 D RBC 5.21 Hgb 15.4 Hct 46.7 MCV 89.6 MCH 29.6 MCHC 33.0 RDW 12.6 Plt Count 206 MPV 8.5 Neut % (Auto) 60.4 Lymph % (Auto) 32.4 [place] % (Auto) 6.2 Eos % (Auto) 0.6 Baso % (Auto) 0.4 Neut # (Auto) 4.5 Lymph # (Auto) 2.4 [place] # (Auto) 0.5 Eos # (Auto) 0.1 Baso # (Auto) 0.0 Sodium 144 Potassium 4.0 Chloride 108 H Carbon Dioxide 29 Anion Gap 11.0 BUN 8 Creatinine 0.95 Estimated Creat Clear 153 Estimated GFR 88 Est GFR ( Amer) 106 Glucose 124 H Stl Aeromonas (PCR) Not detected Stl C. cayetanensis PCR Not detected Stool Rotavirus (PCR) Not detected Stl Adenov F 40/41 PCR Not detected Stool Astrovirus (PCR) Not detected Stool Campylobacter PCR Not detected Stl C.difficile Tox PCR Not detected Stool Cryptosporidium PCR Not detected Stl E.coli Shiga Tox PCR Not detected Stool E coli O157 PCR Not detected Stl Enterotoxigenic E PCR Not detected Stool EPEC (PCR) Not detected Stool EAEC (PCR) Not detected Stl E. histolytica PCR Not det
--- NOTE | 2017-05-12 14:55 | HMH.PROC ---
[facility] Procedure Note Procedure Note:: Gastroenterology Consultation Date of Service-May 12, 2017 History of Present Illness: Mr. Emerson is a 42-year-old gentleman who is here for hospital admission because of his abdominal pain and imaging studies showing colitis. One week ago last Friday, he developed left upper quadrant abdominal pain. This radiated down into the left lower quadrant and eventually into the back. He does have some chronic back pain. He initially developed bile/bilious yellow colored diarrhea. He reports no fever, hematochezia or bright red rectal bleeding. The patient did have a CAT scan that showed evidence of colitis but no bowel perforation. The patient's father had colon cancer at the age of 52 with advanced disease. The patient has never had a colonoscopy. 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 He reports no tobacco or alcohol Family History: Noncontributory Review of Systems: Negative Physical Exam: Physical Examination: Gen.: The patient is a well-developed well-nourished individual in no acute distress HEENT: Normocephalic/atraumatic extraocular movements are intact anicteric Neck: Supple no lymphadenopathy Chest: Clear to auscultation Cardiovascular: Regular rate and rhythm Abdomen: Normoactive bowel sounds soft, nontender, nondistended, no hepatosplenomegaly Extremities: No edema Labs: See chart Radiology: CT scan evidence of colitis Impression/Plan: Left upper/left lower quadrant abdominal pain-the patient is much clinically improved. We did discuss dietary measures to follow. I did recommend a probiotic. I would complete 10 days of antibiotic. I will plan outpatient colonoscopy in the next 3-6 weeks. He should have rapid resolution of the acute self-limited colitis.
--- NOTE | 2017-05-12 14:59 | P.PCN_ITS ---
[facility] Procedure Note Procedure Note:: Gastroenterology Consultation Date of Service-May 12, 2017 History of Present Illness: Mr. Emerson is a 42-year-old gentleman who is here for hospital admission because of his abdominal pain and imaging studies showing colitis. One week ago last Friday, he developed left upper quadrant abdominal pain. This radiated down into the left lower quadrant and eventually into the back. He does have some chronic back pain. He initially developed bile/bilious yellow colored diarrhea. He reports no fever, hematochezia or bright red rectal bleeding. The patient did have a CAT scan that showed evidence of colitis but no bowel perforation. The patient's father had colon cancer at the age of 52 with advanced disease. The patient has never had a colonoscopy. 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 He reports no tobacco or alcohol Family History: Noncontributory Review of Systems: Negative Physical Exam: Physical Examination: Gen.: The patient is a well-developed well-nourished individual in no acute distress HEENT: Normocephalic/atraumatic extraocular movements are intact anicteric Neck: Supple no lymphadenopathy Chest: Clear to auscultation Cardiovascular: Regular rate and rhythm Abdomen: Normoactive bowel sounds soft, nontender, nondistended, no hepatosplenomegaly Extremities: No edema Labs: See chart Radiology: CT scan evidence of colitis Impression/Plan: Left upper/left lower quadrant abdominal pain-the patient is much clinically improved. We did discuss dietary measures to follow. I did recommend a probiotic. I would complete 10 days of antibiotic. I will plan outpatient colonoscopy in the next 3-6 weeks. He should have rapid resolution of the acute self-limited colitis.
== END 2017-05-12 15:22 | disposition home or self-care (01) ==
LOC: ER 10:31 → 2ND 11:50
PROVIDERS: Admitting Provider Emergency Medicine; Emergency Provider Emergency Medicine; Family Provider Family Medicine; PCP Nurse Practitioner Family; Visit Provider Emergency Medicine
DX: K52.9 Noninfective gastroenteritis and colitis, unspecified (principal); K57.30 Diverticulosis of large intestine without perforation or abscess without bleeding
CPT/HCPCS: 36415; 74021; 74177; 80048; 80053; 81001; 82150; 83690; 83735; 85025; 87507; 96365; 96375; 99284; G0378; J1956; Q9967

== ENCOUNTER → 2017-05-20 11:22 | Outpatient (CLI) | payer BC, SELFPAY ==
[2017-05-20 17:58] LABS: Basophils % 0.4 % (0.1-2.0); Eosinophils # 0.1 K/mm3 (0.0-0.4); Eosinophils % 0.9 % (0.1-12.0); Hematocrit 53.8 % (42.0-52.0); Lymphocytes # 1.3 K/mm3 (0.7-4.5); Lymphocytes % 14.7 K/mm3 (10-50); Mean Corpuscular HGB Conc 33.5 g/dL (31.8-35.4); Mean Corpuscular Hemoglobin 29.8 pg (27.0-31.2); Mean Platelet Volume 10.5 fl (7.4-10.4); Monocytes # 0.6 K/mm3 (0.1-1.0); Monocytes % 6.5 % (1.7-9.3); Neutrophils # 6.8 K/mm3 (1.8-7.8); Neutrophils % 77.4 % (37.0-80.0); Platelet Count 241 K/mm3 (142-424); Red Blood Count 6.05 M/mm3 (4.60-6.20); Red Cell Distribution Width 12.2 % (11.5-17.5); White Blood Count 8.8 K/mm3 (4.8-10.8)
[2017-05-20 18:02] LABS: Amylase 37 U/L (25-125); Lipase 182 u/L (73-393)
[2017-05-20 21:12] LABS: Anion Gap 19.1 mEq/L (5-15); Aspartate Amino Transferase 77 U/L (15-37); Bilirubin,Total 0.7 mg/dL (0.2-1.0); Blood Urea Nitrogen 11 mg/dL (7-18); Calcium 9.6 mg/dL (8.5-10.1); Carbon Dioxide 22 mmol/L (21.0-32.0); Chloride 100 mmol/L (98-107); Estimated Glomerular Filt Rate 149 ml/min (>60); GFR (African American) 181 ML/MIN (>60); Glucose 131 mg/dL (74-106); Potassium 4.1 mmoL/L (3.5-5.1)
[2017-05-20 21:13] LABS: Alanine Aminotransferase 119 U/L (12-78); Albumin Level 4.5 gm/dL (3.4-5.0); Albumin/Globulin Ratio 1.3 (1.1-1.8); Alkaline Phosphatase 115 U/L (46-116); Globulin 3.6 gm/dl (1.3-3.2); Sodium 137 mmol/L (136-145); Total Protein,Serum 8.1 gm/dL (6.4-8.2)
[2017-05-22 08:25] LABS: Hep A Ab, IgM Negative (Negative); Hepatitis B Core Antibody IgM Negative (Negative); Hepatitis B Surface Antigen Negative (Negative)
[2017-05-22 15:32] LABS: Hepatitis C Antibody <0.1 s/co ratio (0.0-0.9)
== END ==
PROVIDERS: Visit Provider Nurse Practitioner Family
DX: R53.83 Other fatigue (principal); M54.9 Dorsalgia, unspecified; K52.9 Noninfective gastroenteritis and colitis, unspecified
CPT/HCPCS: 80053; 80074; 82150; 83690; 85025

== ENCOUNTER → 2017-06-13 11:46 | Outpatient (CLI) | payer BC, SELFPAY ==
[2017-06-13 12:49] LABS: Erythrocyte Sedimentation Rate 19 mm/hr (0-15)
[2017-06-13 12:50] LABS: Hemoglobin A1C 5.5 % (0.0-7.0)
[2017-06-13 14:13] LABS: Blood Urea Nitrogen 11 mg/dL (7-18); Glucose 126 mg/dL (74-106); Potassium 4.3 mmoL/L (3.5-5.1); Total Protein,Serum 8.1 gm/dL (6.4-8.2)
[2017-06-13 16:57] LABS: Alanine Aminotransferase 158 U/L (12-78); Albumin Level 4.3 gm/dL (3.4-5.0); Albumin/Globulin Ratio 1.1 (1.1-1.8); Alkaline Phosphatase 140 U/L (46-116); Anion Gap 17.3 mEq/L (5-15); Aspartate Amino Transferase 73 U/L (15-37); Bilirubin,Total 0.4 mg/dL (0.2-1.0); Calcium 10.3 mg/dL (8.5-10.1); Carbon Dioxide 25 mmol/L (21.0-32.0); Chloride 102 mmol/L (98-107); Creatinine,Serum 0.83 mg/dL (0.70-1.30); Estimated Glomerular Filt Rate 103 ml/min (>60); GFR (African American) 124 ML/MIN (>60); Globulin 3.8 gm/dl (1.3-3.2); Sodium 140 mmol/L (136-145)
[2017-06-13 17:00] LABS: C-Reactive Protein < 0.2 mg/L (0.0-0.9)
== END ==
PROVIDERS: Visit Provider Nurse Practitioner Family
DX: R73.09 Other abnormal glucose (principal); R74.8 Abnormal levels of other serum enzymes
CPT/HCPCS: 36415; 80053; 83036; 85651; 86140

== ENCOUNTER 2018-09-25 14:20 | Observation (INO) ==
--- NOTE | 2018-09-25 16:08 | History & Physical Report ---
*Admission Date: 09/25/18 *Chief complaint: ABD PAIN *History of present illness: 43-year-old male presents for epigastric pain, diarrhea, unable to keep liquids or food down. Patient states he was treated 2 weeks ago due to a diverticulitis flareup. On Friday he started having this upper gastric pain with diarrhea. Patient states he is taking uddi-[id number] digestive enzyme and herbal supplements to help with his digestion. Patient reports a history of diverticulosis. Admitted for acute pancreatitis with a lipase of 2833. For IV fluids, n.p.o. status, and pain control and repeat labs in a.m. [facility] History Medical History: Denies:: Cancer, Diabetes Mellitus Type 1, Diabetes Mellitus Type 2, Internal Pacemaker, Lung Disease, MRSA, Seizures *Have you ever received a pneumonia vaccine?: No *Have you received a flu vaccine this season?: No Other Surgeries: Yes: No Previous Surgery, Colonoscopy, Other. No: Pacemaker Amputation: No Fractures: Yes ((L) clavicle) - *Social History Educational Level: Attended College Smoking Status: Former smoker Alcohol Intake: former Alcohol Intake Frequency:: 0-2 drinks per day Substance Use Type: denies use *Occupational Status:: employed Housing: house Household Members: none *Travel in the last 8 weeks: None Family Hx:: Cancer, Coronary Artery Disease, Heart Attack, Hyperlipidemia, Hypertension Review of Systems - Review of Systems Review of systems:: pertinent systems reviewed and negative unless documented below - Constitutional Reports anorexia, Denies body ache(s), Denies fever(s) - Eyes Denies change in vision - ENT Denies nasal congestion, Denies sore throat - *Cardiovascular Denies chest pain at rest - *Respiratory Denies chest congestion, Denies cough - *Gastrointestinal Reports abdominal pain, Reports change in bowel habits, Reports change in stools, Reports loose stools, Reports nausea, Denies vomiting - *Genitourinary Denies difficulty urinating - *Musculoskeletal Denies back pain - Integumentary/Breasts Denies rash - *Neurologic Denies dizziness, Denies headache(s) - Psychiatric Denies lack of enjoyment, Denies anxiety - Endocrine Denies excessive sweating - Hematologic/Lymphatic Denies enlarged lymph nodes - Allergic/Immunologic Denies itchy eyes Meds Home Medications Medication Instructions Recorded Confirmed Type Pancreat/Bet HCl/Pep/Brom/Pap 1 each PO DAILY 09/25/18 09/25/18 History [Super Enzyme Caps] Allergies Allergy/AdvReac Type Severity Reaction Status Date / Time cat dander Allergy Severe Difficulty Verified 03/23/18 13:44 Breathing Exam Vital signs and Labs for Last 24 Hours: Temp Pulse Resp BP Pulse Ox 98.0 F 60 19 127/86 97 09/25/18 14:46 09/25/18 14:46 09/25/18 14:46 09/25/18 14:46 09/25/18 15:51 I & O for Last 24 hours: Intake & Output 09/23/18 09/24/18 09/25/18 09/26/18 11:59 11:59 11:59 11:59 Weight 180 lb 9 oz - Constitutional mild distress - *Routine HEENT Exam Head: Present: normocephalic Eye: Present: EOMI, PERRL ENT: Present: mucous membranes moist - *Routine Neck Exam Present: supple. Absent: lymphadenopathy - *Routine Respiratory Exam Present: CTA bilaterally - *Routine Cardiovascular Exam Present: RRR - *Routine Abdominal Exam Present: soft, normoactive bowel sounds, tenderness, guarding - *Routine Extremities Exam Present: full ROM. Absent: cyanosis, clubbing, edema - *Routine Skin Exam Present: warm. Absent: rash - *Routine Neurological Exam Present: alert, oriented X3 - Routine Psychiatric Exam Present: normal affect Assessment and Plan (1) Acute pancreatitis Current visit: Yes Status: Acute Category: Medical Code(s): K85.90 - Acute pancreatitis without necrosis or infection, unspecified (2) Abdominal pain Current visit: No Status: Acute Category: Medical Code(s): R10.9 - Unspecified abdominal pain (3) Elevated lipase Current visit: No Status: Acute Category: Medical Code(s): R74.8 - Abnormal levels of other serum enzymes - Assessment and plan all Dx Assessment and Plan for all problems:: iv fluids labs npo pain control
--- NOTE | 2018-09-25 16:12 | Pharmacy Consult Notes ---
[facility] Pharmacy VTE Monitoring - Patient Demographics Admission date: 09/25/18 Report Date: 09/25/18 Time: 16:12 Allergies/Adverse Reactions: Patient Allergies cat dander Allergy (Severe, Verified 03/23/18 13:44) Difficulty Breathing Height: 1.93 m Weight: 81.902 kg - VTE Risk VTE Score: 1 VTE Risk Level: Very Low Risk - Prophylaxis VTE Prophylaxis Ordered?: Yes Types of VTE Prophylaxis: TEDS Knee High Location of Applied Device: Bilateral Lower Extremeties - VTE Diagnosis Confirmed Treatment or plan recommended: Continue Current Treatment
[2018-09-26 07:13] LABS: Basophils % 0.5 % (0.1-2.0); Eosinophils # 0.2 K/mm3 (0.0-0.4); Eosinophils % 2.7 % (0.1-12.0); Hematocrit 45.6 % (42.0-52.0); Hemoglobin 15.1 g/dL (14.1-18.0); Lymphocytes # 1.6 K/mm3 (0.7-4.5); Lymphocytes % 26.1 % (10-50); Mean Corpuscular Volume 89.8 fl (80-94); Mean Platelet Volume 9.5 fl (7.4-10.4); Monocytes # 0.5 K/mm3 (0.1-1.0); Monocytes % 7.7 % (1.7-9.3); Neutrophils # 3.8 K/mm3 (1.8-7.8); Neutrophils % 63.1 % (37.0-80.0); Platelet Count 171 K/mm3 (142-424); Red Blood Count 5.07 M/mm3 (4.60-6.20)
[2018-09-26 07:32] LABS: Albumin Level 3.2 gm/dL (3.4-5.0); Albumin/Globulin Ratio 0.9 (1.1-1.8); Anion Gap 6.8 mEq/L (5-15); Bilirubin,Total 0.9 mg/dL (0.2-1.0); Chol/HDL Ratio 3.4 (1-3.5); Globulin 3.4 gm/dl (1.3-3.2); Total Protein,Serum 6.6 gm/dL (6.4-8.2)
--- NOTE | 2018-09-26 13:45 | Discharge Summary ---
General - General Admission date:: 09/25/18 Discharge date: 09/26/18 HPI HPI: 43-year-old male presents for epigastric pain, diarrhea, unable to keep liquids or food down. Patient states he was treated 2 weeks ago due to a diverticulitis flareup. On Friday he started having this upper gastric pain with diarrhea. Patient states he is taking [id number] digestive enzyme and herbal supplements to help with his digestion. Patient reports a history of diverticulosis. Admitted for acute pancreatitis with a lipase of 2833. For IV fluids, n.p.o. status, and pain control and repeat labs in a.m. Hospital Course Hospital Course: iv fluids for hydration monitoring of labs lipase return to normal npo status pain control Today patient sitting up in bed, had clear liquids for breakfast and then again for lunch. Patient states he feels much better now pain has decreased, just slightly tender. Patient states he would like be discharged home. Follow-up with Dr. Calvin on 10/16 as scheduled. Follow-up in the office next Friday. Objective Vital signs: Temp Pulse Resp BP Pulse Ox 97.8 F 62 16 127/87 100 09/26/18 08:00 09/26/18 08:00 09/26/18 08:00 09/26/18 08:00 09/26/18 08:00 no acute distress - *Routine HEENT Exam Head: Present: normocephalic Eye: Present: PERRL ENT: Present: mucous membranes moist - *Routine Neck Exam Present: full ROM - *Routine Respiratory Exam Present: CTA bilaterally - *Routine Cardiovascular Exam Present: RRR - *Routine Abdominal Exam Present: soft, normoactive bowel sounds, tenderness. Absent: distended, rebound, guarding - *Routine Extremities Exam Present: full ROM - *Routine Skin Exam Present: intact - *Routine Neurological Exam Present: alert, oriented X3 - Routine Psychiatric Exam Present: normal affect Results Labs on day of discharge: Labs from last 24 hours 09/26/18 09/26/18 09/26/18 06:45 06:45 06:45 WBC 6.0 D RBC 5.07 Hgb 15.1 Hct 45.6 MCV 89.8 MCH 29.7 MCHC 33.0 RDW 13.0 Plt Count 171 MPV 9.5 Neut % (Auto) 63.1 Lymph % (Auto) 26.1 [place] % (Auto) 7.7 Eos % (Auto) 2.7 Baso % (Auto) 0.5 Neut # (Auto) 3.8 Lymph # (Auto) 1.6 [place] # (Auto) 0.5 Eos # (Auto) 0.2 Baso # (Auto) 0.0 Sodium 141 Potassium 3.8 Chloride 106 Carbon Dioxide 32 Anion Gap 6.8 BUN 8 Creatinine 0.88 Estimated Creat Clear 130 Estimated GFR 95 Est GFR ( Amer) 115 Glucose 95 Hemoglobin A1c 5.5 Calcium 9.0 Total Bilirubin 0.9 AST 11 L D ALT 36 D Alkaline Phosphatase 86 Total Protein 6.6 Albumin 3.2 L D Globulin 3.4 H Albumin/Globulin Ratio 0.9 L Triglycerides 71 Cholesterol 153 LDL Cholesterol 94 VLDL Cholesterol 14 HDL Cholesterol 45 Cholesterol/HDL Ratio 3.4 Amylase 40 D Lipase 192 - Additional Comments jena rounded earlier, all orders per jena DS: Diagnosis - Discharge Diagnosis (1) Acute pancreatitis Status: Acute (2) Abdominal pain Status: Acute (3) Elevated lipase Status: Acute Discharge Plan - Patient Discharge Instructions ACTIVITY: Continue current activity DIET: continue same diet, advance to your usual diet Patient Instructions: DI for Pancreatitis - Follow up Plan Follow up with: Grayson Emerson APRN [Primary Care Provider] - 10/07/18 Black Calvin [Referring] - 10/16/18 Disposition: Home, Self-Skilled Nursing Medications: Home Medications Medication Instructions Recorded Confirmed Type Pancreat/Bet HCl/Pep/Brom/Pap 1 each PO DAILY 09/25/18 09/25/18 History [Super Enzyme Caps] Ondansetron HCl [Zofran 4mg Tab] 4 mg PO Q8 PRN 3 Days #14 tab 09/26/18 Rx Prescriptions/Medication Reconciliation: New Ondansetron HCl [Zofran 4mg Tab] 4 mg PO Q8 PRN 3 Days #14 tab PRN Reason: Nausea Discontinued Pancreat/Bet HCl/Pep/Brom/Pap [Super Enzyme Caps] 1 each PO DAILY
== END 2018-09-26 15:01 | disposition home or self-care (01) ==
LOC: 2ND 14:25 → INTOOBSV 14:25
PROVIDERS: ADMIT Emergency Medicine; ATTEND Emergency Medicine
DX: R10.9 Unspecified abdominal pain; R74.8 Abnormal levels of other serum enzymes; K85.90 Acute pancreatitis without necrosis or infection, unspecified
CPT/HCPCS: 80053; 80061; 82150; 83036; 83690; 85025; G0378; J2405

== ENCOUNTER → 2018-10-07 18:33 | Outpatient (CLI) | payer BC, SELFPAY | PROVIDERS: Visit Provider Nurse Practitioner Family | DX: R10.9 Unspecified abdominal pain (principal) | CPT/HCPCS: 87086 ==

== ENCOUNTER 2020-05-14 15:44 | Emergency (ER) | payer BC, SELFPAY ==
[2020-05-14 16:17] VITALS: BP 153/105; PULSE 92; RESP 20; TEMP 36.6; O2SAT 99; BMI 24.4
--- NOTE | 2020-05-14 16:44 | HMH.EDUTC ---
[facility] [place] Impression: Laceration Disposition: Home, Self-Care Condition on Discharge: Good Instructions: How to Care for a Laceration After Repair, Laceration Repair, DI for Laceration Repair -- Simple Additional Instructions: Suture/Staple instructions: You have required stitches or Garcia today. Please read the following instructions so you know how to care for them: 1. Keep wound area dry for the first 24 hours. 2 May clean gently with mild soap and water, after 48 hours to prevent crusting over suture knots. 3. You may shower if your provider gives permission but do not take a bath until the skin is healed.. 4. Never leave a wet dressing or Band-Aid on your stitches as this allows bacteria to reach the area and may cause infection. Band-aids can cause the wound to sweat and not recommended to wear for long periods of time Watch for signs of infection: Increasing redness, tenderness or warmth around the suture site Unusual swelling around the site Appearance of pus around each suture or any red streaks Fever If you develop any of the above signs or symptoms of infection, Follow up with Family Physician immediately 5. Suture removal in _7-10___days 6. Return to [facility] or follow up with family doctor for removal. This can be done by any medical provider during regular hours on Friday through Friday, by appointment. Prescriptions: Amoxicillin/Potassium Clav [Augmentin 875-125 Tablet] 1 tab PO Q12H 5 Days #10 tab Transmission Status: Received by [id number] Referrals: Grayson Emerson APRN [Primary Care Provider] - As needed Forms: Work/School Release Time of Disposition: 16:47 Medical Decision Making - Erik Inquiry Pt receiving controlled substance: No Erik was queried for this patient: No Vital Signs: 05/14/20 16:17 05/14/20 18:23 Temperature 97.9 F 97.9 F Temperature Source Temporal Artery Scan Pulse Rate 92 H Pulse Rate [Right Brachial] 92 H Respiratory Rate 20 20 Blood Pressure 153/105 H Blood Pressure [Right Arm] 153/105 H Blood Pressure Mean [Right Arm] 121 Blood Pressure Source [Right Arm] Automatic Cuff Blood Pressure Position [Right Arm] Sitting 02 Sat by Pulse Oximetry 99 Oxygen Delivery Method Room Air Orders (Tests/Meds): ORDERS Category Date Time Status XR hand RT min 3V Stat Exams 05/14/20 17:20 Taken - Radiology Data #1 Image(s): Hand Image Reviewed: Yes I reviewed the patient's radiology image Preliminary Findings: No Fracture Seen Medical Decision Narrative: wound edges on lacerations approximated well patient had multiple laceration on fingers from chain [place] [facility] [place] - General Stated complaint: [id number] Cut to hand with chainsaw Time Seen by Provider: 05/14/20 16:44 Mode of Arrival: Ambulatory Source of Information: Patient Limitations: No Limitations Description of Symptoms (Recalled from Triage Doc. by RN): PATIENT CUT RIGHT FINGER WITH CHAIN SAW TODAY. STATES HE IS UP TO DATE WITH TETANUS HEENT Symptoms (Recalled from RN notes): No Resp Symptoms (Recalled from RN notes): No Skin Symptoms (Recalled from RN notes): Yes MS Symptoms (Recalled from RN notes): No Functional Status (Recalled from RN notes): WNL - History of Present Illness Provider Complaint: Patient state that he is up to date on his tetanus State that he was using a chain saw earlier when it kicked back on him and he threw his hand up to keep it from hitting his face and it struck him on several fingers on his right hand State that he notice he had several laceration on multiple fingers so he came in to have it checked States that tetanus is up to date - Related Data Previous Rx's Medication Instructions Recorded ciprofloxacin HCl 500 mg tablet 500 mg PO Q12H #14 tab 12/19/19 metronidazole 500 mg tablet 500 mg PO TID #21 tab 12/19/19 Amoxicillin/Potassium Clav 1 tab PO Q12H 5 Days #10 tab 05/14/20 [Augmentin 875-125 Tablet] Allergies
--- NOTE | 2020-05-14 17:20 | XR_ITS ---
PROCEDURE: XR HAND RT MIN 3V CLINICAL INDICATION: LAC Laceration to the 3rd and 4th digits. COMPARISON: No exams were available for comparison FINDINGS: No fracture or dislocation. No lytic or blastic change. There is normal mineralization. Soft tissue defect noted at the radial aspect of the DIP joint of the 3rd digit. There is a small area calcification along the dorsal and proximal aspect of the distal phalanx of the thumb. One cannot exclude the possibility a fracture at this region however, the area of reported involvement is at the 3rd and 4th digits. Please correlate with clinical findings. 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 Other findings:None. IMPRESSION: Laceration at the 3rd digit distally There is a small area calcification along the dorsal and proximal aspect of the distal phalanx of the thumb. One cannot exclude the possibility a fracture at this region however, the area of reported involvement is at the 3rd and 4th digits. Please correlate with clinical findings. 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
[2020-05-14 18:23] VITALS: BP 153/105; PULSE 92; RESP 20; TEMP 36.6; O2SAT 99
== END 2020-05-14 18:28 | disposition home or self-care (01) ==
PROVIDERS: Emergency Provider Nurse Practitioner; PCP Nurse Practitioner Family
DX: S61.210A Laceration without foreign body of right index finger without damage to nail, initial encounter (principal); S61.212A Laceration without foreign body of right middle finger without damage to nail, initial encounter; S61.214A Laceration without foreign body of right ring finger without damage to nail, initial encounter; W31.2XXA Contact with powered woodworking and forming machines, initial encounter; Y92.018 Other place in single-family (private) house as the place of occurrence of the external cause; Z87.891 Personal history of nicotine dependence
CPT/HCPCS: 12005; 73130; 99202; G0463

== ENCOUNTER → 2020-12-15 18:29 | Outpatient (CLI) | payer BC, SELFPAY ==
[2020-12-15 19:47] LABS: Coronavirus 19 IgG Antibody Negative (Negative); Coronavirus 19 IgM Antibody Negative (Negative)
== END ==
PROVIDERS: PCP Nurse Practitioner Family; Visit Provider Nurse Practitioner Family
DX: Z20.822 Contact with and (suspected) exposure to COVID-19 (principal)
CPT/HCPCS: 86328

== ENCOUNTER → 2022-05-27 07:15 | Outpatient (CLI) | payer BC, SELFPAY ==
--- NOTE | 2022-05-27 07:16 | MR_ITS ---
FINAL REPORT CLINICAL HISTORY: right low back pain with right-sided sciatica. NO RECENT INJURY OR TRAUMA FINDINGS: Multiplanar MR imaging of the lumbar spine was performed without contrast. On the sagittal T2-weighted images, there is abnormal decreased signal at L3-4, L4-5 and L5-S1. There is mild loss of height at L4-5 and L5-S1 levels. The vertebral alignment is normal. L1-2: There is no significant canal stenosis or neural foraminal narrowing. L2-3: There is no significant canal stenosis or neural foraminal narrowing. L3-4: A mild diffuse disc bulge is present with endplate hypertrophy. There is a small annular tear in the midline. There is mild bilateral neural foraminal narrowing. L4-5: A moderate diffuse disc bulge is present with an annular tear and mild spinal canal compromise. There is moderate left and mild right neural foraminal narrowing. L5-S1: A mild diffuse disc bulge is present with a right paracentral disc protrusion and moderate compromise of the right lateral recess. These findings are well seen on image 28 of series 6. IMPRESSION: Right paracentral disc protrusion at L5-S1 with moderate compromise of the right lateral recess. Diffuse disc bulges with annular tears at L3-4 and L4-5. Reviewed, Interpreted and Dictated by Kiko Almanza MD Transcribed by Phylicia Brewster Authenticated and [facility]
== END ==
PROVIDERS: PCP Nurse Practitioner Family; Visit Provider Nurse Practitioner
DX: M54.50 Low back pain, unspecified (principal); M54.41 Lumbago with sciatica, right side
CPT/HCPCS: 72148; 76376

== ENCOUNTER 2022-07-12 15:00 | Outpatient (RCR) | payer BC, SELFPAY ==
--- NOTE | 2022-07-02 16:18 | [facility].PTOPEV ---
PT Outpatient Evaluation Rehab PT Outpatient Evaluation Start: 07/02/22 15:03 Freq: Status: Active Protocol: Document 07/02/22 15:03 CLARENCEMARILOU (Rec: 07/02/22 16:18 ILA [id number]) E-signed By Bella Ramirez, PT Outpatient Therapy Subjective History Subjective History Pt is a 47 y/o male who reports chronic intermittent low back pain for years. Pt reports worsening of symptoms in March when he was bent over folding laundry and turned to the right which caused a sharp, stabbing pain to radiate down his right leg. Pt reports gradual worsening of pain over the next two months with radicular symptoms going farther down the leg to the foot. Pt reports he had an MRI on 05/27/22 with impression of Right paracentral disc protrusion at L5-S1 with moderate compromise of the right lateral recess. Diffuse disc bulges with annular tears at L3-4 and L4-5. Pt reports he was referred to a neurosurgeon who recommended conservative care initially. Pt reports he was also prescribed Flexeril which he currently still takes at night time. Pt reports he did not work for a month and basically bed rested. Pt reports he then started seeing a chiropractor which helped with pain. Pt reports current symptoms of intermittent central low back stiffness/ tightness and intermittent referral of pain into the right posterior hip, denies distal symptoms. Pt denies current paresthesia or b/b dysfunction. Pt reports he returned to work yesterday with a 10# lifting restrictions with good tolerance. Pt reports he still has
== END 2022-07-12 15:05 | disposition home or self-care (01) ==
LOC: PT 15:00
PROVIDERS: PCP Nurse Practitioner Family; Visit Provider Nurse Practitioner
DX: M54.50 Low back pain, unspecified (principal); M51.36 Other intervertebral disc degeneration, lumbar region; M54.41 Lumbago with sciatica, right side
CPT/HCPCS: 97110; 97163; 97530